=== PATIENT | female | born 1980 | race Caucasian/White ===

== ENCOUNTER 2024-07-20 18:27 | Emergency (ER) | payer BC ==
[~2024-07-20] VITALS: Wt 82.7 kg
[2024-07-20] MEDS ORDERED: AMOXICILLIN AND1 TA2 PO ×2 (19:40→19:53)
[2024-07-20] MEDS ORDERED: Amoxicillin/Clavulanate K+ 875/125 MG TAB PO ONE (19:45)
[2024-07-20 20:00] VITALS: BP 155/92
== END 2024-07-20 20:00 | disposition home or self-care (01) ==
LOC: ED 18:27
DX: S61.052A Open bite of left thumb without damage to nail, initial encounter (principal); Z23 Encounter for immunization; W54.0XXA Bitten by dog, initial encounter
CPT/HCPCS: 90715